=== PATIENT | female | born 1960 | race Two or more races ===

== ENCOUNTER 2018-10-31 09:30 | Outpatient (CLI) | payer OTHER | END 2018-10-31 09:38 | disposition home or self-care (01) | LOC: SONOGRAMA 09:30 → MAMO-SONO 10:15 | DX: N84.0 Polyp of corpus uteri (principal); N60.12 Diffuse cystic mastopathy of left breast; N60.11 Diffuse cystic mastopathy of right breast; R68.82 Decreased libido; E66.3 Overweight; N95.0 Postmenopausal bleeding; M89.8X8 Other specified disorders of bone, other site; D25.1 Intramural leiomyoma of uterus; D25.2 Subserosal leiomyoma of uterus ==

== ENCOUNTER → 2024-01-10 10:07 | Outpatient (CLI) | payer OTHER | END | disposition home or self-care (01) | LOC: NUCLEAR 10:07 | DX: I26.99 Other pulmonary embolism without acute cor pulmonale (principal); I27.82 Chronic pulmonary embolism ==

== ENCOUNTER 2024-01-12 11:42 | Outpatient (CLI) | payer OTHER | END 2024-01-12 11:43 | disposition home or self-care (01) | LOC: NUCLEAR 11:42 | DX: I26.99 Other pulmonary embolism without acute cor pulmonale (principal); I27.82 Chronic pulmonary embolism ==

== ENCOUNTER 2024-05-07 07:03 | Outpatient (CLI) | payer OTHER | END 2024-05-07 07:15 | disposition home or self-care (01) | LOC: MRI 07:03 | PROVIDERS: ATTEND Specialist | DX: M47.816 Spondylosis without myelopathy or radiculopathy, lumbar region (principal) | CPT/HCPCS: 72148 ==

== ENCOUNTER → 2024-12-26 13:46 | Outpatient (CLI) | payer OTHER ==
[2024-12-26 15:16] LABS: CREATININE SERUM 0.97 mg/dL (0.55-1.02)
== END | disposition home or self-care (01) ==
LOC: LAB 13:46
PROVIDERS: ATTEND Radiology Diagnostic Radiology
DX: I71.9 Aortic aneurysm of unspecified site, without rupture (principal); I82.90 Acute embolism and thrombosis of unspecified vein

== ENCOUNTER 2024-12-30 07:36 | Outpatient (CLI) | payer OTHER | END 2024-12-30 07:48 | disposition home or self-care (01) | LOC: TOM 07:36 | DX: J45.909 Unspecified asthma, uncomplicated (principal); J30.9 Allergic rhinitis, unspecified; I74.9 Embolism and thrombosis of unspecified artery; I82.90 Acute embolism and thrombosis of unspecified vein; R06.00 Dyspnea, unspecified; I82.502 Chronic embolism and thrombosis of unspecified deep veins of left lower extremity | CPT/HCPCS: 71275 ==

== ENCOUNTER 2024-12-30 08:58 | Outpatient (CLI) | payer OTHER | END 2024-12-30 08:59 | disposition home or self-care (01) | LOC: NUCLEAR 08:58 | DX: I74.9 Embolism and thrombosis of unspecified artery (principal); R06.00 Dyspnea, unspecified; I82.90 Acute embolism and thrombosis of unspecified vein; I82.502 Chronic embolism and thrombosis of unspecified deep veins of left lower extremity ==

== ENCOUNTER → 2025-01-15 07:49 | Outpatient (CLI) | payer OTHER | END | disposition home or self-care (01) | LOC: NUCLEAR 07:49 | DX: J45.909 Unspecified asthma, uncomplicated (principal) ==